=== PATIENT | male | born 1995 | race Hispanic/Latino ===

== ENCOUNTER 2019-03-31 21:57 | Inpatient (IN) | payer BC | END 2019-04-03 12:00 | disposition home or self-care (01) | LOC: EDH 21:57 → EDHIP 04-01 02:17 → 2AH 04-01 16:41 | DX: E10.10 Type 1 diabetes mellitus with ketoacidosis without coma (principal); E86.0 Dehydration; K21.9 Gastro-esophageal reflux disease without esophagitis; E11.43 Type 2 diabetes mellitus with diabetic autonomic (poly)neuropathy; E11.65 Type 2 diabetes mellitus with hyperglycemia; K31.84 Gastroparesis; E10.40 Type 1 diabetes mellitus with diabetic neuropathy, unspecified ==

== ENCOUNTER → 2019-09-16 | Outpatient (CLI) | payer OTHER ==
[~2019-09-16] MED LIST: INSU100C14 SQ; INSU100V12 SQ; LIDOCAINE/PRILOCAINE CREAM 5GM TUBE TP ONE
[2019-09-16 16:22] VITALS: BP 124/87
== END | disposition home or self-care (01) ==
LOC: WHH 09:00
PROVIDERS: ATTEND Podiatrist Foot & Ankle Surgery
DX: E10.621 Type 1 diabetes mellitus with foot ulcer (principal); L97.522 Non-pressure chronic ulcer of other part of left foot with fat layer exposed; E10.40 Type 1 diabetes mellitus with diabetic neuropathy, unspecified; I10 Essential (primary) hypertension; K52.9 Noninfective gastroenteritis and colitis, unspecified; Z79.4 Long term (current) use of insulin
CPT/HCPCS: 11042; 11045; A4450; A6207; J3490; L3260

== ENCOUNTER → 2019-10-07 | Outpatient (CLI) | payer OTHER ==
[~2019-10-07] MED LIST changes: +GABA-529 PO; +INSU100V39 SQ; -LIDOCAINE/PRILOCAINE CREAM 5GM TUBE TP ONE
[2019-10-07 13:31] VITALS: BP 123/80
== END | disposition home or self-care (01) ==
LOC: WHH 10:20
PROVIDERS: ATTEND Podiatrist Foot & Ankle Surgery
DX: E10.621 Type 1 diabetes mellitus with foot ulcer (principal); L97.522 Non-pressure chronic ulcer of other part of left foot with fat layer exposed; E10.40 Type 1 diabetes mellitus with diabetic neuropathy, unspecified; I10 Essential (primary) hypertension; Z79.4 Long term (current) use of insulin
CPT/HCPCS: 11042; A6209

== ENCOUNTER 2019-10-12 15:38 | Inpatient (IN) | payer OTHER ==
[~2019-10-12] VITALS: Ht 177.8 cm; Wt 73.8 kg
[~2019-10-12 15:38] MED LIST changes: -GABA-529 PO; -INSU100V39 SQ
[2019-10-12 16:11] LABS: EOSINOPHILS % (AUTO) 5.4 % (0.0-8.0); HEMATOCRIT 40.3 % (42-54); LYMPHOCYTES % (AUTO) 21.8 % (21.0-51.0); MEAN CORPUSCULAR HGB CONC 32.5 g/dL (32.0-36.0); MEAN CORPUSCULAR VOLUME 92.4 fL (79-99); MONOCYTES % (AUTO) 8.1 % (3.0-13.0); NEUTROPHILS % (AUTO) 63.3 % (40.0-77.0); PLATELET COUNT (AUTO) 353 K/uL (130-400); RED BLOOD CELL COUNT(AUTO) 4.36 MIL/uL (4.50-6.20); RED CELL DISTRIBUTION WIDTH 12.6 % (11.0-15.5); WHITE BLOOD COUNT (AUTO) 11.5 K/uL (4.8-10.8)
[2019-10-12 16:20] LABS: CREATININE 0.6 mg/dL (0.5-1.5)
[2019-10-12 16:25] LABS: ALBUMIN 3.7 g/dL (3.5-5.0); BILIRUBIN,TOTAL 0.3 mg/dL (0.2-1.0); TOTAL PROTEIN, SERUM 8.2 g/dL (6.0-8.3)
[2019-10-12] MEDS ORDERED: POTASSIUM CHLORIDE 10% ELIXIR 20 MEQ/15 ML UDCUP PO PRN (16:30)
[2019-10-12] MEDS ORDERED: VANCOMYCIN PROTOCOL PER PHARMACY IV SCH (16:30)
[2019-10-12] MEDS ORDERED: MORPHINE-NS 50 MG/50 ML 50 ML IV PRN (16:30)
[2019-10-12] MEDS ORDERED: POTASSIUM CHLORIDE 20MEQ/100ML 100 ML IV PRN (16:30)
[2019-10-12] MEDS ORDERED: GUAIFENESIN SUGAR-FREE 100 MG/5 ML UDCUP PO PRN (16:30)
[2019-10-12] MEDS ORDERED: LACTULOSE 20 GM/30 ML UDCUP PO PRN (16:30)
[2019-10-12] MEDS ORDERED: MAG HYDROX/AL HYDROX/SIMETH ES 30 ML SUSP UDCUP PO PRN (16:30)
[2019-10-12] MEDS ORDERED: SODIUM CHLORIDE 0.9% 10 ML VIAL IVP PRN (16:30)
[2019-10-12] MEDS ORDERED: VANCOMYCIN 1.75 GM in SODIUM CHLORIDE 0.9% 250 ML IV ONE (16:30)
[2019-10-12] MEDS ORDERED: NALOXONE HCL 0.4 MG/1 ML ML IVP PRN (16:30)
[2019-10-12] MEDS ORDERED: NITROGLYCERIN 0.4 MG SL TAB SL PRN (16:30)
[2019-10-12] MEDS ORDERED: SODIUM CHLORIDE 0.9% 1000ML 1,000 ML IV SCH (16:30)
[2019-10-12] MEDS ORDERED: LIDOCAINE HCL-MPF 1% 2ML VIAL IJ PRN (16:30)
[2019-10-12] MEDS ORDERED: POTASSIUM CHLORIDE 20 MEQ ERTAB PO PRN (16:30)
[2019-10-12] MEDS ORDERED: GLUCAGON 1MG KIT 1 MG ML IM PRN (16:30)
[2019-10-12] MEDS ORDERED: SODIUM CHLORIDE 0.9% 1000ML 1,000 ML IV ONE (16:39)
[2019-10-12] MEDS ORDERED: ZOSYN 3.375GM+NS 50ML 50 ML IV ONE (16:39)
[2019-10-12] MEDS ORDERED: INSU100V12 SQ (17:58)
[2019-10-12] MEDS ORDERED: INSU100V39 SQ (17:58)
[2019-10-12] MEDS ORDERED: GABA-529 PO (17:59)
[2019-10-12] MEDS: ZOSYN 3.375GM+NS 50ML 50 ML IV SCH (18:30)
[2019-10-12 20:20] VITALS: BP 116/83
[2019-10-12] MEDS: INSULIN R PO SS1 SQ SCH (21:00)
[2019-10-12 23:56] VITALS: BP 104/68
[2019-10-13] MEDS: VANCOMYCIN 1.25 GM in SODIUM CHLORIDE 0.9% 250 ML IV SCH ×2 (00:31→09:15)
[2019-10-13] MEDS: ZOSYN 3.375GM+NS 50ML 50 ML IV SCH ×3 (02:30→17:05)
[2019-10-13 03:55] VITALS: BP 97/67
[2019-10-13 04:50] LABS: HEMATOCRIT 36.9 % (42-54); MEAN CORPUSCULAR HEMOGLOBIN 31.2 pg (27.0-33.0); MEAN CORPUSCULAR HGB CONC 32.5 g/dL (32.0-36.0); MEAN CORPUSCULAR VOLUME 95.8 fL (79-99); PLATELET COUNT (AUTO) 295 K/uL (130-400); RED BLOOD CELL COUNT(AUTO) 3.85 MIL/uL (4.50-6.20); RED CELL DISTRIBUTION WIDTH 13.1 % (11.0-15.5); WHITE BLOOD COUNT (AUTO) 7.9 K/uL (4.8-10.8)
[2019-10-13] MEDS: INSULIN R PO SS1 SQ SCH ×4 (06:05→21:00)
[2019-10-13] MEDS ORDERED: ACETAMINOPHEN 325 MG TAB PO PRN ×2 (06:45)
[2019-10-13] MEDS ORDERED: DiphenhydrAMINE HCL 50 MG/ML VIAL IV PRN (06:45)
[2019-10-13] MEDS ORDERED: DIPHENHYDRAMINE HCL 25 MG CAPSULE PO PRN (06:45)
[2019-10-13] MEDS ORDERED: DOCUSATE SODIUM 100 MG CAP PO PRN (08:30)
[2019-10-13 09:14] VITALS: BP 140/95
[2019-10-13] MEDS: CADEXOMER IODINE 40 GM GEL TP SCH (09:15)
[2019-10-13] MEDS: FAMOTIDINE 20MG TAB 20 MG TAB PO SCH ×2 (09:16→20:40)
[2019-10-13] MEDS: GABAPENTIN 100 MG CAPSULE PO SCH ×2 (09:16→20:40)
[2019-10-13] MEDS: INSULIN GLARGINE 100 UNITS/ML 10 ML VIAL SQ SCH ×2 (09:21→21:00)
[2019-10-13] MEDS ORDERED: PROMETHAZINE HCL 25 MG TABLET PO PRN (10:15)
[2019-10-13] MEDS ORDERED: GADODIAMIDE 10 MMOL/20 ML VIAL IV ONE (10:17)
[2019-10-13 11:00] VITALS: BP 130/95
[2019-10-13] MEDS: ONDANSETRON HCL 4 MG/2 ML VIAL IVP PRN (11:57)
--- NOTE | 2019-10-13 14:24 | NUR ---
patient is uncooperative with Initial Physical Therapy Evaluation,with his own words-I DON'T WANT ANY THERAPY.CAN YOU NOT HEAR ME.From previous hospitalization, patient was able to utilize the crutches without any difficulty. Notified VEDA Cain regarding 's attitude towards Physical therapist. Addendum: 10/13/19 at 1431 by LIGIA ARCEO, PT PT Amended: Links added.
--- NOTE | 2019-10-13 16:15 | NUR ---
INITIAL MET W PATIENT , ALONE, FOR DC PLANNING. KNOWN TO THIS EFFICIENCY EXPERT FROM A PREVIOUS ADMISSION. 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 WAS ALSO GOING TO SCHOOL, HAS SINCE DROPPPED OUT . PT SEE DR. GONZALEZ, HAS NO HOME HEALTH OR PORVIDER SERVICES, AND DRIVES HIMSELF . PT HAS HX DM I AND HAS ANXIETY DISORDER. JUST PRIOR TO TIME OF CM ASSESMSENT HAD DECIDED WAS TOO ANXIOUS TO DO PHYSICAL THERPAY. CM TO FOLLOW. ANTICIPATE PO ABX AND FAMILY TO DO DRESSING- CURRENT INSURANCE DOES NOT PAY FOR PLACEMENT OR HH Addendum: 10/14/19 at 1628 by SOCRATES BARTON RN Amended: Links added.
[2019-10-13 17:01] VITALS: BP 153/104
[2019-10-13] MEDS: VANCOMYCIN 1GM+NS 250ML 250 ML IV SCH (17:05)
[2019-10-13 19:20] VITALS: BP 151/109
[2019-10-13 23:55] VITALS: BP 126/76
[2019-10-14] MEDS: ZOSYN 3.375GM+NS 50ML 50 ML IV SCH ×3 (02:28→22:17)
[2019-10-14] MEDS: VANCOMYCIN 1GM+NS 250ML 250 ML IV SCH ×3 (02:28→18:04)
[2019-10-14 05:40] LABS: MEAN CORPUSCULAR HEMOGLOBIN 30.4 pg (27.0-33.0); MEAN CORPUSCULAR HGB CONC 32.2 g/dL (32.0-36.0); MEAN CORPUSCULAR VOLUME 94.5 fL (79-99); PLATELET COUNT (AUTO) 269 K/uL (130-400); RED BLOOD CELL COUNT(AUTO) 3.81 MIL/uL (4.50-6.20); RED CELL DISTRIBUTION WIDTH 12.8 % (11.0-15.5); WHITE BLOOD COUNT (AUTO) 7.6 K/uL (4.8-10.8)
[2019-10-14 05:49] LABS: CREATININE 0.7 mg/dL (0.5-1.5); POTASSIUM 4.3 mmol/L (3.5-5.1)
[2019-10-14] MEDS: INSULIN R PO SS1 SQ SCH ×4 (05:55→22:28)
[2019-10-14 08:00] VITALS: BP 125/83
[2019-10-14] MEDS: FAMOTIDINE 20MG TAB 20 MG TAB PO SCH ×2 (08:45→22:17)
[2019-10-14] MEDS: GABAPENTIN 100 MG CAPSULE PO SCH ×2 (08:45→22:17)
[2019-10-14] MEDS: CADEXOMER IODINE 40 GM GEL TP SCH (08:55)
[2019-10-14] MEDS: INSULIN GLARGINE 100 UNITS/ML 10 ML VIAL SQ SCH ×2 (08:56→22:22)
[2019-10-14] MEDS: ONDANSETRON HCL 4 MG/2 ML VIAL IVP PRN (11:34)
[2019-10-14 12:00] VITALS: BP 127/76
[2019-10-14 16:00] VITALS: BP 149/91
[2019-10-14 19:50] VITALS: BP 171/110
[2019-10-14] MEDS: CLONIDINE HCL 0.1 MG TABLET PO PRN (22:16)
[2019-10-14 23:21] VITALS: BP 120/75
[2019-10-15] MEDS ORDERED: SODIUM CHLORIDE 0.9% 500ML 500 ML IV ONE (01:34)
[2019-10-15] MEDS: VANCOMYCIN 1GM+NS 250ML 250 ML IV SCH ×3 (02:16→18:26)
[2019-10-15 03:44] VITALS: BP 118/79
[2019-10-15] MEDS: ZOSYN 3.375GM+NS 50ML 50 ML IV SCH ×3 (05:08→20:33)
[2019-10-15] MEDS: INSULIN R PO SS1 SQ SCH ×4 (07:13→20:43)
[2019-10-15 08:13] VITALS: BP 119/78
[2019-10-15] MEDS: FAMOTIDINE 20MG TAB 20 MG TAB PO SCH ×2 (09:38→20:33)
[2019-10-15] MEDS: GABAPENTIN 100 MG CAPSULE PO SCH ×2 (09:38→20:34)
[2019-10-15] MEDS: CADEXOMER IODINE 40 GM GEL TP SCH (09:38)
[2019-10-15] MEDS: INSULIN GLARGINE 100 UNITS/ML 10 ML VIAL SQ SCH ×2 (10:16→20:44)
[2019-10-15] MEDS: FLUCONAZOLE 400 MG/NS 200 ML 200 ML IV SCH (11:50)
[2019-10-15 12:08] VITALS: BP 137/81
[2019-10-15 16:00] VITALS: BP 141/91
[2019-10-15 20:16] VITALS: BP 152/108
[2019-10-15] MEDS: CLONIDINE HCL 0.1 MG TABLET PO PRN (20:55)
[2019-10-16] VITALS (7 sets, daily range): BP systolic 99–175; BP diastolic 60–111
[2019-10-16] MEDS: VANCOMYCIN 1GM+NS 250ML 250 ML IV SCH ×3 (02:10→16:44)
[2019-10-16] MEDS: ZOSYN 3.375GM+NS 50ML 50 ML IV SCH ×3 (04:19→21:28)
[2019-10-16] MEDS: INSULIN R PO SS1 SQ SCH ×5 (07:30→21:00)
--- NOTE | 2019-10-16 08:00 | NUR ---
MD rounds patient AAOx3, denies any pain. 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 wound care explained and MD assess site. recs are to stay till saturday for continued IV therapy.
[2019-10-16] MEDS: FAMOTIDINE 20MG TAB 20 MG TAB PO SCH ×2 (08:33→21:28)
[2019-10-16] MEDS: FLUCONAZOLE 400 MG/NS 200 ML 200 ML IV SCH (08:33)
[2019-10-16] MEDS: GABAPENTIN 100 MG CAPSULE PO SCH ×2 (08:34→21:29)
[2019-10-16] MEDS: INSULIN GLARGINE 100 UNITS/ML 10 ML VIAL SQ SCH ×2 (08:36→21:34)
[2019-10-16] MEDS: CADEXOMER IODINE 40 GM GEL TP SCH (08:36)
--- NOTE | 2019-10-16 09:07 | NUR ---
EGG CRATER pump discontinued. witnessed with charge nurse Selina Mckoy RN. waste documented 21.5 mls.
[2019-10-16] MEDS ORDERED: LIDOCAINE HCL 2% 20ML ONE (12:06)
[2019-10-16] MEDS ORDERED: IODIXANOL 320 MG/ML 100 ML VIAL ONE (12:06)
[2019-10-16] MEDS ORDERED: SODIUM BICARB 50MEQ 50ML VIAL ONE (12:06)
--- NOTE | 2019-10-16 15:09 | NUR ---
cm note spoke to Clara with [facility] [phone] and states they have received referral for w/c, but requesting actual insurance card. obtained from pt and this was faxed to them, confirmed with clara at [facility] and states has received and will verify benefits and provide feedback once verified.
--- NOTE | 2019-10-16 15:23 | NUR ---
cm note spoke to raymond wisdom at [facility], and states pt is a pre existing pt, and request that pt call the wound center on saturday. [phone]. and they will give him an appointment. as per raymond Baca states his insurance does not have coverage for wound center, but they will continue to see pt and provide him with an appointment when he calls in on saturday. pt updated on this and in agreement. updated primary nurse on above.
[2019-10-16] MEDS: HYDROCODONE/ACETAMINOPHEN 10/325 MG TAB PO PRN (17:26)
[2019-10-17] MEDS: VANCOMYCIN 1GM+NS 250ML 250 ML IV SCH ×3 (01:55→18:06)
[2019-10-17 03:32] VITALS: BP 131/84
[2019-10-17] MEDS: ZOSYN 3.375GM+NS 50ML 50 ML IV SCH ×3 (04:04→20:17)
[2019-10-17] MEDS: INSULIN R PO SS1 SQ SCH ×2 (06:54→11:13)
[2019-10-17 08:08] VITALS: BP 148/104
[2019-10-17] MEDS: GABAPENTIN 100 MG CAPSULE PO SCH ×2 (08:43→20:16)
[2019-10-17] MEDS: FAMOTIDINE 20MG TAB 20 MG TAB PO SCH ×2 (08:43→20:16)
[2019-10-17] MEDS: FLUCONAZOLE 400 MG/NS 200 ML 200 ML IV SCH (08:43)
[2019-10-17] MEDS: INSULIN GLARGINE 100 UNITS/ML 10 ML VIAL SQ SCH (08:44)
[2019-10-17] MEDS: CADEXOMER IODINE 40 GM GEL TP SCH (09:00)
[2019-10-17] MEDS: HYDROCODONE/ACETAMINOPHEN 10/325 MG TAB PO PRN ×2 (09:48→20:16)
[2019-10-17 11:08] VITALS: BP 145/86
--- NOTE | 2019-10-17 14:00 | NUR ---
BS low blood sugarof 40.. D50 amp x1 given. patient is awake alert and oriented. labs ordered
--- NOTE | 2019-10-17 15:00 | NUR ---
recheck blood check 132
[2019-10-17] MEDS: DEXTROSE 50%-WATER 50 ML DISP.SYRIN IV PRN ×2 (15:08→15:56)
[2019-10-17 16:18] VITALS: BP 122/74
[2019-10-17 19:13] VITALS: BP 127/98
[2019-10-17 23:20] VITALS: BP 142/91
[2019-10-18] MEDS: VANCOMYCIN 1GM+NS 250ML 250 ML IV SCH ×3 (01:49→16:46)
[2019-10-18] MEDS: ZOSYN 3.375GM+NS 50ML 50 ML IV SCH ×3 (03:50→19:35)
[2019-10-18 03:51] VITALS: BP 145/92
[2019-10-18 06:22] LABS: HEMATOCRIT 36.9 % (42-54); MEAN CORPUSCULAR HEMOGLOBIN 30.2 pg (27.0-33.0); MEAN CORPUSCULAR HGB CONC 32.2 g/dL (32.0-36.0); MEAN CORPUSCULAR VOLUME 93.7 fL (79-99); PLATELET COUNT (AUTO) 261 K/uL (130-400); RED BLOOD CELL COUNT(AUTO) 3.94 MIL/uL (4.50-6.20); RED CELL DISTRIBUTION WIDTH 12.7 % (11.0-15.5); WHITE BLOOD COUNT (AUTO) 6.7 K/uL (4.8-10.8)
[2019-10-18 06:29] LABS: BILIRUBIN,TOTAL 0.3 mg/dL (0.2-1.0); CREATININE 1.1 mg/dL (0.5-1.5); POTASSIUM 4.6 mmol/L (3.5-5.1); TOTAL PROTEIN, SERUM 6.9 g/dL (6.0-8.3)
[2019-10-18 08:40] LABS: BASOPHILS % (MANUAL) 2 % (0-2); EOSINOPHILS % (MANUAL) 10 % (1-6); LYMPHOCYTES % (MANUAL) 31 % (22-44); MONOCYTES % (MANUAL) 9 % (2-9); PLATELET MORPHOLOGY COMMENT ADEQUATE; REACTIVE LYMPHOCYTES 3 % (0-0); SEGMENTED NEUTROPHILS % 45 % (40-70)
[2019-10-18] MEDS: FAMOTIDINE 20MG TAB 20 MG TAB PO SCH ×2 (08:49→19:34)
[2019-10-18] MEDS: HYDROCODONE/ACETAMINOPHEN 10/325 MG TAB PO PRN ×3 (08:50→22:45)
[2019-10-18] MEDS: GABAPENTIN 100 MG CAPSULE PO SCH ×2 (08:50→19:34)
[2019-10-18] MEDS: FLUCONAZOLE 400 MG/NS 200 ML 200 ML IV SCH (08:50)
[2019-10-18] MEDS: CADEXOMER IODINE 40 GM GEL TP SCH (09:00)
[2019-10-18 11:19] VITALS: BP 144/98
[2019-10-18 16:17] VITALS: BP 169/115
[2019-10-18] MEDS: CLONIDINE HCL 0.1 MG TABLET PO PRN (16:47)
[2019-10-18 19:43] VITALS: BP 130/85
[2019-10-18 22:54] VITALS: BP 126/88
[2019-10-19] MEDS: VANCOMYCIN 1GM+NS 250ML 250 ML IV SCH (02:42)
[2019-10-19 03:15] VITALS: BP 124/77
[2019-10-19] MEDS: ZOSYN 3.375GM+NS 50ML 50 ML IV SCH (04:03)
[2019-10-19] MEDS: HYDROCODONE/ACETAMINOPHEN 10/325 MG TAB PO PRN ×2 (05:32→09:49)
[2019-10-19 07:57] VITALS: BP 149/107
[2019-10-19] MEDS: FLUCONAZOLE 400 MG/NS 200 ML 200 ML IV SCH (08:22)
[2019-10-19] MEDS: GABAPENTIN 100 MG CAPSULE PO SCH (08:22)
[2019-10-19] MEDS: FAMOTIDINE 20MG TAB 20 MG TAB PO SCH (08:22)
[2019-10-19] MEDS: ONDANSETRON HCL 4 MG/2 ML VIAL IVP PRN (09:48)
--- NOTE | 2019-10-19 11:00 | NUR ---
FINAL DISCHARGE ARRANGEMENTS ADVISED FATHER RUTH PERRY OF FEE FOR SATURDAY APPT WITH [facility], AND THAT WOUND HEALING/ DRESSING CHANGES ARE NOT COVERED BY INSURANCE, AGREED TO HAVE BAILEY LOOK AT ONCE WEEKLY AND DO DSG CHAGNES BY PT AND FAMILY REST OF TIME. RELAYED ALSO TO PATIENT, WHO AGREED TO ALL; INSTRUCTIONS AND TEACH BACK PER PRIMARY RN; CALL TO DME COMPANY- AWAITING SIGNATURE FROM DR. GONZALEZ FOR W/CHAIR- CALL TO 'S [place] OFFICE, FORM TO BE FAXED TO THEM, STAFF WILL ADVISED DR. GONZALEZ & FAX BACK- WHEEL CHAIR TO BE DELIVERED TO HOME IF PT DC PRIOR TO AUTH BY INSURANCE. ALSO SPOKE TO TEGAN AT [employer]EF[employer] RE WHEEL CHAIR AND WOUND CARE Addendum: 10/20/19 at 0735 by SOCRATES BARTON RN Amended: Links added.
[2019-10-19 11:40] VITALS: BP 119/67
[2019-10-19 11:41] VITALS: BP 140/90
--- NOTE | 2019-10-19 12:30 | NUR ---
DISCHARGE PATIENT GIVEN DISCHARGE INSTRUCTIONS VIA TEACH BACK. 20G PIV TO LFA DISCONTINUED. PATIENT REINSTRUCTED REGARDING DAILY WOUND CARE TO LEFT HEAL USING IODOSORB GEL. PER PATIENT, WILL PERFORM OWN WOUND CARE. PATIENT TO FOLLOW UP WITH DR. GONZALEZ AND DR. AVALOS. RX GIVEN FOR AUGMENTIN AND DIFLUCAN. PATIENT NWB TO LEFT FOOT AND HAS CRUTCHES AT BEDSIDE. WOUND CARE PERFORMED AND PICTURES TAKEN. PATIENT STABLE AT THIS TIME. PATIENT WHEELED TO LOBBY BY KLEBER TATE.
== END 2019-10-19 12:10 | disposition home or self-care (01) | DRG 638 ==
LOC: EDH 15:38 → EDHIP 15:39 → 4CH 20:19
PROVIDERS: ADMIT Family Medicine; ATTEND Family Medicine
DX: E10.621 Type 1 diabetes mellitus with foot ulcer (principal); B37.89 Other sites of candidiasis; L97.429 Non-pressure chronic ulcer of left heel and midfoot with unspecified severity; Z79.4 Long term (current) use of insulin; Z91.19 Patient's noncompliance with other medical treatment and regimen; E10.42 Type 1 diabetes mellitus with diabetic polyneuropathy; B95.2 Enterococcus as the cause of diseases classified elsewhere
CPT/HCPCS: 36415; 73630; 73723; 80048; 80053; 80202; 82947; 82948; 85025; 85027; 87040; 87070; 87076; 87077; 87186; 97039; A9579; G0378; J1450; J1644; J1815; J2270; J2405; J2543; J3370; J3490; J7030; J7040; J7070; Q9967

== ENCOUNTER 2019-10-27 17:35 | Inpatient (IN) | payer OTHER ==
[~2019-10-27] VITALS: Ht 177.8 cm; Wt 71.6 kg
[~2019-10-27 17:35] MED LIST changes: +GABA-529 PO; -INSU100C14 SQ; +INSU100V39 SQ
[2019-10-27] MEDS ORDERED: VANCOMYCIN 1GM+NS 250ML 250 ML IV ONE (18:19)
[2019-10-27] MEDS ORDERED: SODIUM CHLORIDE 0.9% 50 ML IV ONE (18:19)
[2019-10-27] MEDS ORDERED: CEFTRIAXONE SODIUM 2 GM VIAL ONE (18:19)
[2019-10-27 18:34] LABS: BASOPHILS % (AUTO) 0.7 % (0.0-5.0); EOSINOPHILS % (AUTO) 3.6 % (0.0-8.0); HEMATOCRIT 41.1 % (42-54); LYMPHOCYTES % (AUTO) 38.5 % (21.0-51.0); MEAN CORPUSCULAR HGB CONC 32.8 g/dL (32.0-36.0); MEAN CORPUSCULAR VOLUME 91.3 fL (79-99); MONOCYTES % (AUTO) 10.6 % (3.0-13.0); NEUTROPHILS % (AUTO) 46.2 % (40.0-77.0); PLATELET COUNT (AUTO) 284 K/uL (130-400); RED CELL DISTRIBUTION WIDTH 12.2 % (11.0-15.5)
[2019-10-27 18:45] LABS: INR 0.93 (0.85-1.15); PARTIAL THROMBOPLASTIN TIME 23.6 SEC (26.3-35.5); PROTHROMBIN TIME 9.8 SEC (9.6-11.6)
[2019-10-27 18:49] LABS: CARBON DIOXIDE 29 mmol/L (21-32); CHLORIDE 100 mmol/L (101-111); CREATININE 0.9 mg/dL (0.5-1.5); GLOMERULAR FILTR. RATE CALC 109 mL/min (>60); GLUCOSE,RANDOM 268 mg/dL (70-105); POTASSIUM 4.3 mmol/L (3.5-5.1); SODIUM SERUM 138 mmol/L (136-145); UREA NITROGEN, BLOOD 33 mg/dL (7-18)
[2019-10-27] MEDS ORDERED: MORPHINE SULFATE 2 MG/ML 1ML SYG ONE (18:51)
[2019-10-27] MEDS ORDERED: ONDANSETRON HCL 4 MG/2 ML VIAL ONE (18:51)
[2019-10-27 19:01] LABS: ALANINE AMINOTRANSFERASE 42 U/L (12-78); ALBUMIN 3.7 g/dL (3.5-5.0); ASPARTATE AMINOTRANSFERASE 20 U/L (10-37); BILIRUBIN,TOTAL 0.2 mg/dL (0.2-1.0); CREATINE KINASE, TOTAL 67 U/L (21-232); MYOGLOBIN 21 ng/mL (10-92); TOTAL PROTEIN, SERUM 8.2 g/dL (6.0-8.3); TROPONIN I < 0.04 ng/mL (0.00-0.06)
[2019-10-27] MEDS ORDERED: VANCOMYCIN PROTOCOL PER PHARMACY IV SCH (21:00)
[2019-10-27] MEDS ORDERED: MORPHINE SULFATE 4 MG/1ML SYG IVP PRN (21:00)
[2019-10-27] MEDS ORDERED: CLONIDINE HCL 0.1 MG TABLET PO PRN (21:00)
[2019-10-27] MEDS ORDERED: LACTULOSE 20 GM/30 ML UDCUP PO PRN (21:00)
[2019-10-27] MEDS ORDERED: GUAIFENESIN-DM 200/20 MG 10 ML PO PRN (21:00)
[2019-10-27] MEDS ORDERED: ZOLPIDEM TARTRATE 5 MG TAB PO PRN (21:00)
[2019-10-27] MEDS ORDERED: DiphenhydrAMINE HCL 50 MG/ML VIAL IVP PRN (21:00)
[2019-10-27] MEDS ORDERED: LIDOCAINE HCL-MPF 1% 2ML VIAL IJ PRN (21:00)
[2019-10-27] MEDS ORDERED: MAG HYDROX/AL HYDROX/SIMETH ES 30 ML SUSP UDCUP PO PRN (21:00)
[2019-10-27] MEDS ORDERED: ONDANSETRON HCL 4 MG/2 ML VIAL IVP PRN (21:00)
[2019-10-27] MEDS ORDERED: GUAIFENESIN SUGAR-FREE 100 MG/5 ML UDCUP PO PRN (21:00)
[2019-10-27] MEDS ORDERED: NITROGLYCERIN 0.4 MG SL TAB SL PRN (21:00)
[2019-10-27] MEDS ORDERED: SODIUM CHLORIDE 0.9% 10 ML VIAL IVP SCH (21:00)
[2019-10-27] MEDS ORDERED: POTASSIUM CHLORIDE 10% ELIXIR 20 MEQ/15 ML UDCUP PO PRN (21:00)
[2019-10-27] MEDS ORDERED: MEROPENEM 1 GM VIAL IVP SCH (21:00)
[2019-10-27] MEDS ORDERED: POTASSIUM CHLORIDE 20MEQ/100ML 100 ML IV PRN (21:00)
[2019-10-27] MEDS ORDERED: ACETAMINOPHEN 325 MG TAB PO PRN ×2 (21:00)
[2019-10-27] MEDS ORDERED: DIPHENHYDRAMINE HCL 25 MG CAPSULE PO PRN (21:00)
[2019-10-27] MEDS ORDERED: POTASSIUM CHLORIDE 20 MEQ ERTAB PO PRN (21:00)
[2019-10-27] MEDS: SODIUM CHLORIDE 0.9% 1000ML 1,000 ML IV SCH (21:00)
[2019-10-27] MEDS ORDERED: PHARMACY COMMUNICATION MISC SCH ×2 (21:15→22:30)
[2019-10-27] MEDS ORDERED: SODIUM CHLORIDE 0.9% 1000ML 1,000 ML IV ONE (21:20)
[2019-10-27] MEDS ORDERED: INSULIN HUMULIN R 100 UNIT/ML 3ML ONE (21:24)
--- NOTE | 2019-10-27 21:40 | NUR ---
RX SEJAL FROM PHARMACY CALLED TILE SORTER AND INFORMED OF PT'S NEED FOR ABX CLARIFICATION. TILE SORTER INFORMED PHARMACIST THAT PT IS STILL IN ER AND WILL LOOK INTO MEDS WHEN PT IS TRANSFERRED TO FLOOR.
[2019-10-27] MEDS: VANCOMYCIN 1.25 GM in SODIUM CHLORIDE 0.9% 250 ML IV SCH (22:00)
[2019-10-27 22:30] VITALS: BP 131/80
[2019-10-27] MEDS ORDERED: DEXTROSE 50%-WATER 50 ML DISP.SYRIN IV PRN (22:30)
[2019-10-27] MEDS ORDERED: GLUCAGON 1MG KIT 1 MG ML IM PRN (22:30)
--- NOTE | 2019-10-27 22:45 | NUR ---
ADMIT PT ADMITTED TO ROOM 413, AAOX3. CLAIMS OF PAINS ON LEFT FOOT. IVF OF NS FROM ER CONTINUED AT 125CC/HR. ADMISSION CARE DONE. ADMISSION DATA BASE COMPLETED. MEDICATED WITH MORPHINE FOR PAIN. PICTURE OF WOUND AND WOUND DRESSING DONE. PLEASE REFER TO CHART. KEPT COMFORTABLE IN BED. CALL LIGHT WITHIN REACH. FALL PRECAUTIONS IMPLEMENTED. ORIENTED TO ROOM AND UNIT. IN FOR MORE CARE AND MANAGEMENT. Addendum: 10/28/19 at 0059 by DONNA CONDON RN RN Amended: Links added.
[2019-10-27] MEDS ORDERED: MORPHINE-NS 50 MG/50 ML 50 ML IV PRN (23:00)
--- NOTE | 2019-10-27 23:30 | NUR ---
UNAVAILABLE UNABLE TO FIND VANCO DOSE FROM PHARMACY. MED NOT LOADED ON THE OMNICELL. PHARMACY ALREADY CLOSED FOR THE NIGHT. CALLED [facility] IN ER TO SEE IF RX DELIVERED MED THERE BUT NONE FOUND.
[2019-10-27] MEDS ORDERED: NALOXONE HCL 0.4 MG/1 ML ML IVP PRN (23:45)
--- NOTE | 2019-10-28 | NUR ---
MOLD BUILDER CHECKED MOLD BUILDER SETTING WITH VEDA CRUZ. STARTED MOLD BUILDER PER PROTOCOL. EDUCATION GIVEN TO PT FOR HOW TO USE PUMP. PT VERBALIZES UNDERSTANDING. WILL MONITOR PT.
[2019-10-28] MEDS: ZOSYN 3.375GM+NS 50ML 50 ML IV SCH ×3 (00:02→17:37)
--- NOTE | 2019-10-28 01:02 | NUR ---
RE-ASSESS PT RESTING WELL, FAIRLY ASLEEP WITH RESPIRATIONS EVEN AND UNLABORED. NO DISTRESS NOTED. CALL LIGHT WITHIN REACH. WILL MONITOR PT.
--- NOTE | 2019-10-28 01:55 | NUR ---
VANCO EMERGENCY ROOM PHYSICIAN FOUND DOSES OF VANCO LOADED IN THE REF BUT NOT PROFILED IN THE OMNICELL. INSERTED SECOND PIV FOR INFUSION, G20 TO LEFT HAND. PT TOLERATED INSERTION WELL. INV ABX HUNG. WILL INFORM RX WHEN IT OPENS OF CHANGE IN TIME OF WHEN ABX WAS HUNG.
[2019-10-28] MEDS: VANCOMYCIN 1.25 GM in SODIUM CHLORIDE 0.9% 250 ML IV SCH ×4 (01:56→17:41)
[2019-10-28 03:41] VITALS: BP 126/78
[2019-10-28] MEDS: SODIUM CHLORIDE 0.9% 1000ML 1,000 ML IV SCH ×3 (04:30→20:23)
--- NOTE | 2019-10-28 05:26 | NUR ---
ROUNDS PT RESTING WELL, NO CONCERNS VERBALIZED AT THIS TIME. NO DISTRESS NOTED. KEPT COMFORTABLE. FOR MORE CARE AND MANAGEMENT.
[2019-10-28] MEDS: INSULIN HUMULIN R 100 UNIT/ML 3ML SQ SCH ×4 (05:53→20:23)
[2019-10-28 06:10] LABS: HEMATOCRIT 37.1 % (42-54); MEAN CORPUSCULAR HEMOGLOBIN 29.5 pg (27.0-33.0); MEAN CORPUSCULAR HGB CONC 32.3 g/dL (32.0-36.0); MEAN CORPUSCULAR VOLUME 91.2 fL (79-99); PLATELET COUNT (AUTO) 229 K/uL (130-400); RED BLOOD CELL COUNT(AUTO) 4.07 MIL/uL (4.50-6.20); RED CELL DISTRIBUTION WIDTH 12.1 % (11.0-15.5); WHITE BLOOD COUNT (AUTO) 6.8 K/uL (4.8-10.8)
[2019-10-28 06:34] LABS: ALBUMIN 3.1 g/dL (3.5-5.0); BILIRUBIN,TOTAL 0.3 mg/dL (0.2-1.0); CREATININE 0.8 mg/dL (0.5-1.5); POTASSIUM 4.2 mmol/L (3.5-5.1)
[2019-10-28 08:00] VITALS: BP 162/103
[2019-10-28] MEDS ORDERED: PHARMACY COMMUNICATION MISC SCH (08:45)
[2019-10-28] MEDS ORDERED: DOCUSATE SODIUM 100 MG CAP PO PRN (08:45)
[2019-10-28] MEDS: INSULIN GLARGINE 100 UNITS/ML 10 ML VIAL SQ SCH (10:23)
[2019-10-28 10:37] LABS: APPEARANCE,URINE Clear (CLEAR); BILIRUBIN,URINE Negative (NEGATIVE); COLOR,URINE Yellow (YELLOW); GLUCOSE, URINE (UA) >=1000 mg/dL (NEGATIVE); KETONES,URINE Negative (NEGATIVE); LEUKOCYTE ESTERASE ,URINE Negative (NEGATIVE); NITRATE,URINE Negative (NEGATIVE); OCCULT BLOOD,URINE Negative (NEGATIVE); PROTEIN,URINE Negative (NEGATIVE); UROBILINOGEN,URINE 0.2 mg/dL (0.2-1.0)
[2019-10-28 11:10] LABS: BACTERIA,URINE Rare /HPF (None Seen); RBC,URINE None Seen /HPF (0-1); SQUAMOUS EPITHELIAL CELL,UR Rare /HPF (0-2); WBC,URINE None Seen /HPF (0-1)
[2019-10-28 12:00] VITALS: BP 122/85
--- NOTE | 2019-10-28 14:34 | NUR ---
INITIAL Patient lives with parents. Emergency contact is his father, Marcelino Mccain, [phone]. No home services. DME: glucometer (uses insulin). Patient is independent and drives. He is no longer employed at this time. PCP is Dr. Konrad Medrano. Pharmacy is [facility] in [place]. DCP is home. Addendum: 10/28/19 at 1436 by LOBO ROCK SS Amended: Links added.
--- NOTE | 2019-10-28 15:45 | NUR ---
PT REQUESTING HIS IV AUTO MACHINIST BE STOPPED AND HE WANTS IVP MORPHINE INSTEAD; HE STATES HE DOES NOT GET ADEQUATE PAIN RELEIF WITH THE AUTO MACHINIST AND WANTS THE LARGER DOSE ADMINISTERED LESS FREQUENTLY; I CALLED DR BARAKAT AND GOT AN OK TO D/C AUTO MACHINIST AND START MORPHINE 4MG IVP Q4HRS PRN PAIN
[2019-10-28 16:00] VITALS: BP 129/81
[2019-10-28] MEDS: MORPHINE SULFATE 4 MG/1ML SYG IV PRN ×2 (17:50→21:59)
[2019-10-28 20:28] VITALS: BP 138/92
--- NOTE | 2019-10-28 20:45 | NUR ---
MD ROUNDING DR. DOMINGO IN PT ROOM, ASSESSED CHART AND PT. MD DRESSED WOUND TO LEFT FOOT WITH MEDIHONEY AND VASELINE GAUZE, WRAPPED WITH KERLIX. UPDATED PT ON PLAN OF CARE AND ANSWERED PT QUESTIONS.
[2019-10-29 00:28] VITALS: BP 132/87
[2019-10-29] MEDS: ZOSYN 3.375GM+NS 50ML 50 ML IV SCH ×4 (00:41→23:26)
[2019-10-29] MEDS: VANCOMYCIN 1.25 GM in SODIUM CHLORIDE 0.9% 250 ML IV SCH ×3 (02:31→17:27)
[2019-10-29 04:28] VITALS: BP 147/100
[2019-10-29] MEDS: SODIUM CHLORIDE 0.9% 1000ML 1,000 ML IV SCH ×2 (04:52→20:47)
[2019-10-29] MEDS: MORPHINE SULFATE 4 MG/1ML SYG IV PRN ×4 (05:15→20:47)
[2019-10-29 05:42] LABS: HEMATOCRIT 40.5 % (42-54); MEAN CORPUSCULAR HEMOGLOBIN 29.4 pg (27.0-33.0); MEAN CORPUSCULAR HGB CONC 32.3 g/dL (32.0-36.0); PLATELET COUNT (AUTO) 262 K/uL (130-400); RED BLOOD CELL COUNT(AUTO) 4.45 MIL/uL (4.50-6.20); RED CELL DISTRIBUTION WIDTH 12.3 % (11.0-15.5)
[2019-10-29 05:53] LABS: HEMOGLOBIN A1C 9.1 % (4.0-6.0)
[2019-10-29 05:59] LABS: POTASSIUM 4.5 mmol/L (3.5-5.1)
[2019-10-29] MEDS: INSULIN HUMULIN R 100 UNIT/ML 3ML SQ SCH ×4 (07:10→20:46)
[2019-10-29 08:00] VITALS: BP 141/90
[2019-10-29] MEDS: INSULIN GLARGINE 100 UNITS/ML 10 ML VIAL SQ SCH ×2 (10:04→20:45)
--- NOTE | 2019-10-29 10:32 | NUR ---
i called dr mehta's office and spoke to nurse and informed of blood sugar 367; pending his call back
[2019-10-29] MEDS ORDERED: INSU100V12 SQ (10:51)
--- NOTE | 2019-10-29 10:55 | NUR ---
received call back from dr mehta and he stated to continue pt's insulin schedule as he takes at home
[2019-10-29 11:57] VITALS: BP 135/87
--- NOTE | 2019-10-29 16:30 | NUR ---
DC PLANING- SANTYL AND DRSG CHANGES? SUMMARY SPOKE W DR. GONZALEZ IN AM, STATES HE THINKS DR. HILLMAN WANTS IV ABX- WHAT ARE OPTOINS CALL FROM INSURANCE- ALONSO- [phone] EXT [phone] - SHE STAETS PT HAS HOME HEALTH BENENFITS BUT HH HAS TO BE WILLING TO TAKE THE CONTRACTED RATE - ADVISED HER THAT HAVE NOT YET SPOKEN TO DR. DOMINGO RE HIS RECS. ALONSO WAS UNABLE TO TELL ME THIS CM THE MEDICAITON BENEFITS. CALL TO DR. DOMINGO, MESSAGE LEFT CALL BACK FROM JOSE L WHO STATED WHAT PT REALLY NEEDS IS SANTYL- TO HEEL WITH GAUZE DAILY- WITH OR WITHOUT HOME HEALHT AND TO FOLLOW IN HIS OFFICE AND THAT PT REALLY NEEDS TO NOT BE WALKING ON THAT FOOT- AND THAT HE MAY CHANGE IDEAS FOR DC PLAN WHEN CULTURES ARE FULLY IN . RELAYED PLAN TO PATIENT- PATIENT STATED HAS [facility] APPT AT 4980 10/29 REQUESTING HAC AND/OR CM STAFF IN ROOM. WILL RELAY TO ROSA ISELA ALBA Addendum: 10/30/19 at 1438 by SOCRATES BARTON RN CM insurance number- [id number] ext [phone] alonso marvin
--- NOTE | 2019-10-29 17:31 | NUR ---
pt had a low blow sugar of 42 prior to his dinner tray arrived at same time as sugar check and he ate 100% of it on recheck sugar level 67; then pt's mother brought him fast food and he also ate all of that which i found out about after the fact; will recheck sugar again to see current level after all food eaten.
--- NOTE | 2019-10-29 18:44 | NUR ---
REGARDING US ARTERIAL: DR. KIAN RUBY PAGED AND HE RETURNED THE CALL WITHIN A FEW MINUTES. SUKH MCCOLLUM SPOKE TO . INFORMED HIM DR GONZALEZ HAD A QUESTION REGARDING THE ARTERIAL US FOR THE PATIENT, WANTED TO KNOW PERCENTAGE OF OCCLUSION TO EXTREMITIES. SAID THERE WAS CALCIFIED VESSELS BUT NO NARROWING OF THE LUMENS.
[2019-10-29 20:00] VITALS: BP 143/82
[2019-10-30] VITALS (8 sets, daily range): BP systolic 108–157; BP diastolic 60–101
[2019-10-30] MEDS: VANCOMYCIN 1.25 GM in SODIUM CHLORIDE 0.9% 250 ML IV SCH ×3 (02:33→17:43)
[2019-10-30] MEDS: MORPHINE SULFATE 4 MG/1ML SYG IV PRN ×5 (03:43→21:40)
[2019-10-30] MEDS: SODIUM CHLORIDE 0.9% 1000ML 1,000 ML IV SCH ×2 (05:00→21:00)
[2019-10-30] MEDS: INSULIN HUMULIN R 100 UNIT/ML 3ML SQ SCH ×4 (07:13→21:39)
[2019-10-30] MEDS: INSULIN GLARGINE 100 UNITS/ML 10 ML VIAL SQ SCH ×2 (07:18→21:38)
[2019-10-30] MEDS: ZOSYN 3.375GM+NS 50ML 50 ML IV SCH ×2 (08:34→15:35)
--- NOTE | 2019-10-30 12:10 | NUR ---
DC PLANING- SANTYL AND DRSG CHANGES? SUMMARY SPOKE W DR. GONZALEZ IN AM, STATES HE THINKS DR. HILLMAN WANTS IV ABX- WHAT ARE OPTOINS CALL FROM INSURANCE- ALONSO- [phone] EXT [phone] - SHE STAETS PT HAS HOME HEALTH BENENFITS BUT HH HAS TO BE WILLING TO TAKE THE CONTRACTED RATE - ADVISED HER THAT HAVE NOT YET SPOKEN TO DR. DOMINGO RE HIS RECS. ALONSO WAS UNABLE TO TELL ME THIS CM THE MEDICAITON BENEFITS. CALL TO DR. DOMINGO, MESSAGE LEFT CALL BACK FROM JOSE L WHO STATED WHAT PT REALLY NEEDS IS SANTYL- TO HEEL WITH GAUZE DAILY- WITH OR WITHOUT HOME HEALHT AND TO FOLLOW IN HIS OFFICE AND THAT PT REALLY NEEDS TO NOT BE WALKING ON THAT FOOT- AND THAT HE MAY CHANGE IDEAS FOR DC PLAN WHEN CULTURES ARE FULLY IN . RELAYED PLAN TO PATIENT- PATIENT STATED HAS [facility] APPT AT 9281 10/29 REQUESTING HAC AND/OR CM STAFF IN ROOM. WILL RELAY TO ROSA ISELA ALBA Addendum: 10/30/19 at 1215 by SOCRATES BARTON RN CM Amended: Links added. Addendum: 10/30/19 at 1439 by SOCRATES BARTON RN CM insurance number- [id number] ext [phone] alonso marvin
--- NOTE | 2019-10-30 12:23 | NUR ---
CALLED IN SANTYL 30 MG TUBE DAILY WITH GAUZE DRESSING CALLED TO [facility] [phone] ON BEHALF OF PHILL DOMINGO AWAITING CALLBACK FOR PRICES
--- NOTE | 2019-10-30 14:46 | NUR ---
REFERRAL TO [facility]- DECLINED- STATED CONTRACTED PAYMENT TOO LITTLE
--- NOTE | 2019-10-30 19:50 | NUR ---
PM Assessment Received pt with with father at the beside, NS at 25cc/hr rate change as ordered to 125cc/hr, routine assessment done, plan of care discuss, pt was made aware that Santyl for wound care is covered by insurance but HH set up remain in progress. Per pt stated that per Dr. Medrano stated he will be going home tomorrow. Pt currently denies discomfort.
[2019-10-31] MEDS: ZOSYN 3.375GM+NS 50ML 50 ML IV SCH ×2 (00:24→08:39)
[2019-10-31] MEDS: VANCOMYCIN 1.25 GM in SODIUM CHLORIDE 0.9% 250 ML IV SCH ×2 (02:27→10:09)
[2019-10-31 03:06] VITALS: BP 132/83
[2019-10-31] MEDS: MORPHINE SULFATE 4 MG/1ML SYG IV PRN ×2 (03:19→08:40)
[2019-10-31 05:32] LABS: HEMATOCRIT 36.9 % (42-54); MEAN CORPUSCULAR HGB CONC 32.8 g/dL (32.0-36.0); MEAN CORPUSCULAR VOLUME 91.3 fL (79-99); PLATELET COUNT (AUTO) 230 K/uL (130-400); RED BLOOD CELL COUNT(AUTO) 4.04 MIL/uL (4.50-6.20); WHITE BLOOD COUNT (AUTO) 7.8 K/uL (4.8-10.8)
[2019-10-31 05:46] LABS: CREATININE 0.7 mg/dL (0.5-1.5); POTASSIUM 3.9 mmol/L (3.5-5.1)
[2019-10-31] MEDS: SODIUM CHLORIDE 0.9% 1000ML 1,000 ML IV SCH (05:53)
[2019-10-31] MEDS: INSULIN HUMULIN R 100 UNIT/ML 3ML SQ SCH (05:54)
[2019-10-31 08:17] VITALS: BP 144/100
[2019-10-31] MEDS: INSULIN GLARGINE 100 UNITS/ML 10 ML VIAL SQ SCH (08:54)
[2019-10-31 11:25] VITALS: BP 162/91
--- NOTE | 2019-10-31 12:30 | NUR ---
DISCHARGE INSTRUCTIONS GIVEN TO PATIENT AND PATIENTS MOM AT BEDSIDE. WOUND CARE TEACHING DONE, DRESSING CHANGED, AND PHOTO TAKEN. PATIENTS MOM BROUGHT SANTYL FROM PHARMACY. SUPPLIES GIVEN FOR WOUND CARE AT HOME. INSTRUCTED TO FOLLOW UP WITH DR. GONZALEZ ON SATURDAY AND DR. DOMINGO IN ONE WEEK. PATIENT AT THIS TIME DENIES ANY PAIN, NO FEVER, NO SIGNS AND SYMPTOMS OF ACUTE DISTRESS NOTED. AWARE OF NON WEIGHT BEARING TO LEFT FOOT. IVS REMOVED. PATIENT TO BE TAKEN HOME BY MOTHER
--- NOTE | 2019-10-31 14:00 | NUR ---
PLEASE SEE ORDERS FORM DR. DOMINGO AND ELKE MCCOLLUM NOTES Addendum: 11/01/19 at 0810 by SOCRATES BARTON RN CM Amended: Links added.
== END 2019-10-31 12:32 | disposition home or self-care (01) | DRG 623 ==
LOC: EDH 17:35 → EDHIP 19:50 → 4CH 20:52
PROVIDERS: ADMIT Family Medicine; ATTEND Family Medicine
PROC: 0JBR0ZZ Excision of Left Foot Subcutaneous Tissue and Fascia, Open Approach (ICD-10-PCS; principal; 2019-10-28)
DX: E10.621 Type 1 diabetes mellitus with foot ulcer (principal); L97.429 Non-pressure chronic ulcer of left heel and midfoot with unspecified severity; E10.40 Type 1 diabetes mellitus with diabetic neuropathy, unspecified; I87.8 Other specified disorders of veins; B96.4 Proteus (mirabilis) (morganii) as the cause of diseases classified elsewhere; Z79.4 Long term (current) use of insulin
CPT/HCPCS: 36415; 71045; 73630; 80048; 80053; 80202; 81001; 82550; 82948; 83036; 83605; 83874; 84145; 84484; 85025; 85027; 85610; 85730; 87040; 87070; 87076; 87077; 87088; 87186; 93005; 93925; G0378; J0696; J1815; J2270; J2405; J2543; J3370; J7030

== ENCOUNTER 2020-01-19 11:29 | Emergency (ER) | payer OTHER ==
[2020-01-19 14:22] LABS: APPEARANCE,URINE Clear (CLEAR); BILIRUBIN,URINE Negative (NEGATIVE); COLOR,URINE Yellow (YELLOW); GLUCOSE, URINE (UA) >=1000 mg/dL (NEGATIVE); KETONES,URINE Negative (NEGATIVE); LEUKOCYTE ESTERASE ,URINE Negative (NEGATIVE); NITRATE,URINE Negative (NEGATIVE); OCCULT BLOOD,URINE Negative (NEGATIVE); PH,URINE 7.5 (5.0-8.0); PROTEIN,URINE Negative (NEGATIVE); UROBILINOGEN,URINE 0.2 mg/dL (0.2-1.0)
[2020-01-19 14:30] LABS: AMPHET/METH SCREEN,URINE NEGATIVE (NEGATIVE); BARBITURATE SCREEN, URINE NEGATIVE (NEGATIVE); BENZODIAZEPINES SCREEN,URINE NEGATIVE (NEGATIVE); CANNABINOID SCREEN,URINE POSITIVE (NEGATIVE); COCAINE SCREEN,URINE POSITIVE (NEGATIVE); OPIATE SCREEN,URINE NEGATIVE (NEGATIVE); PHENCYCLIDINE SCREEN,URINE NEGATIVE (NEGATIVE)
[2020-01-19 14:49] LABS: RBC,URINE None Seen /HPF (0-1); WBC,URINE 0-1 /HPF (0-1)
[2020-01-19 14:50] LABS: BACTERIA,URINE None Seen /HPF (None Seen); SQUAMOUS EPITHELIAL CELL,UR None Seen /HPF (0-2)
== END 2020-01-19 15:08 | disposition left against medical advice (07) ==
LOC: EDH 11:29
DX: R11.2 Nausea with vomiting, unspecified (principal); R10.33 Periumbilical pain; R19.05 Periumbilic swelling, mass or lump; E11.40 Type 2 diabetes mellitus with diabetic neuropathy, unspecified
CPT/HCPCS: 80305; 81001

== ENCOUNTER → 2023-02-19 | Outpatient (CLI) | payer OTHER, MEDICARE | END | disposition home or self-care (01) | LOC: RAH 12:45 | PROVIDERS: ATTEND Family Medicine | DX: M25.532 Pain in left wrist (principal) | CPT/HCPCS: 73100 ==

== ENCOUNTER → 2023-09-14 | Outpatient (CLI) | payer OTHER, MEDICARE ==
[~2023-09-14] MED LIST changes: -INSU100V39 SQ; +INSU100V45 SQ
== END | disposition home or self-care (01) ==
LOC: SHCH 08-20 14:25
PROVIDERS: ATTEND Internal Medicine Cardiovascular Disease
DX: I37.1 Nonrheumatic pulmonary valve insufficiency (principal); I25.10 Atherosclerotic heart disease of native coronary artery without angina pectoris; I31.39 Other pericardial effusion (noninflammatory); I51.7 Cardiomegaly; I51.89 Other ill-defined heart diseases
CPT/HCPCS: 93306

== ENCOUNTER → 2024-01-28 | Outpatient (CLI) | payer OTHER, MEDICARE ==
[2024-01-28 12:09] LABS: BASOPHILS # (AUTO) 0.11 K/uL (0.00-0.20); BASOPHILS % (AUTO) 1.5 % (0.0-5.0); EOSINOPHILS # (AUTO) 0.43 K/uL (0.00-0.70); HEMATOCRIT 23.7 % (42-54); IMMATURE GRANULOCYTE ABSOLUTE 0.03 K/uL (0-1); LYMPHOCYTES # (AUTO) 1.3 K/uL (1.0-4.8); LYMPHOCYTES % (AUTO) 17.7 % (21.0-51.0); MEAN CORPUSCULAR HEMOGLOBIN 32.2 pg (27.0-33.0); MEAN CORPUSCULAR HGB CONC 31.6 g/dL (32.0-36.0); MEAN CORPUSCULAR VOLUME 101.7 fL (79-99); MONOCYTES # (AUTO) 0.8 K/uL (0.1-1.0); MONOCYTES % (AUTO) 10.7 % (3.0-13.0); NEUTROPHILS # (AUTO) 4.5 K/uL (1.8-7.7); NEUTROPHILS % (AUTO) 63.7 % (40.0-77.0); PLATELET COUNT (AUTO) 244 K/uL (130-400); RED BLOOD CELL COUNT(AUTO) 2.33 MIL/uL (4.50-6.20); RED CELL DISTRIBUTION WIDTH 14.6 % (11.0-15.5); WHITE BLOOD COUNT (AUTO) 7.1 K/uL (4.8-10.8)
[2024-01-28 12:17] LABS: CREATININE 7.1 mg/dL (0.5-1.3); POTASSIUM 4.9 mmol/L (3.5-5.1)
[2024-01-28 12:19] LABS: INR 0.96 (0.85-1.15); PROTHROMBIN TIME 11.4 SEC (9.6-11.6)
[2024-01-28 12:20] LABS: PARTIAL THROMBOPLASTIN TIME 30.2 SEC (26.3-35.5)
[2024-01-28 12:27] LABS: B-TYPE NATRIURETIC PEPTIDE 923 pg/mL (0-100)
== END | disposition home or self-care (01) ==
LOC: DAH 10:00 → EDSTATUS 01-30 11:00
PROVIDERS: ATTEND Internal Medicine Cardiovascular Disease
DX: Z01.818 Encounter for other preprocedural examination (principal); I25.10 Atherosclerotic heart disease of native coronary artery without angina pectoris; Z79.01 Long term (current) use of anticoagulants
CPT/HCPCS: 36415; 80048; 83880; 85025; 85610; 85730; 93005

== ENCOUNTER → 2024-04-09 | Outpatient (CLI) | payer OTHER, MEDICARE ==
[~2024-04-09] VITALS: Ht 177.8 cm; Wt 66.1 kg
[~2024-04-09] MED LIST changes: +AMLO-258 PO; +CARV12.511 PO; -GABA-529 PO; +HYDR50TA37 PO; -INSU100V12 SQ; -INSU100V45 SQ; +LOSA100T59 PO; +SEVE800T7 PO; +novolog SQ
[2024-04-09 09:47] LABS: EOSINOPHILS # (AUTO) 0.67 K/uL (0.00-0.70); EOSINOPHILS % (AUTO) 6.8 % (0.0-8.0); HEMATOCRIT 25.4 % (42-54); IMMATURE GRANULOCYTE ABSOLUTE 0.04 K/uL (0-1); LYMPHOCYTES # (AUTO) 1.1 K/uL (1.0-4.8); LYMPHOCYTES % (AUTO) 11.2 % (21.0-51.0); MEAN CORPUSCULAR HEMOGLOBIN 31.7 pg (27.0-33.0); MEAN CORPUSCULAR HGB CONC 31.1 g/dL (32.0-36.0); MONOCYTES # (AUTO) 0.8 K/uL (0.1-1.0); MONOCYTES % (AUTO) 8.2 % (3.0-13.0); NEUTROPHILS # (AUTO) 7.1 K/uL (1.8-7.7); NEUTROPHILS % (AUTO) 72.4 % (40.0-77.0); PLATELET COUNT (AUTO) 318 K/uL (130-400); RED BLOOD CELL COUNT(AUTO) 2.49 MIL/uL (4.50-6.20); RED CELL DISTRIBUTION WIDTH 21.1 % (11.0-15.5); WHITE BLOOD COUNT (AUTO) 9.9 K/uL (4.8-10.8)
[2024-04-09 10:00] LABS: POTASSIUM 4.2 mmol/L (3.5-5.1)
[2024-04-09 10:03] LABS: PROTHROMBIN TIME 10.8 SEC (9.6-11.6)
[2024-04-09 10:04] LABS: PARTIAL THROMBOPLASTIN TIME 27.6 SEC (26.3-35.5)
[2024-04-09 10:06] VITALS: BP 145/80; PULSE 86; RESP 16; TEMP 97.4
[2024-04-09 10:38] LABS: B-TYPE NATRIURETIC PEPTIDE 919 pg/mL (0-100)
== END | disposition home or self-care (01) ==
LOC: DAH 10:00 → EDSTATUS 04-14 09:00
PROVIDERS: ATTEND Internal Medicine Cardiovascular Disease
DX: I25.10 Atherosclerotic heart disease of native coronary artery without angina pectoris (principal); E11.22 Type 2 diabetes mellitus with diabetic chronic kidney disease; N18.6 End stage renal disease
CPT/HCPCS: 36415; 71045; 80048; 83880; 85025; 85610; 85730; 93005

== ENCOUNTER 2024-07-02 05:40 | Day surgery (SDC) | payer OTHER, MEDICARE ==
[2024-06-30 11:14] VITALS: BP 182/97; PULSE 75; RESP 18; TEMP 97.7
[2024-06-30 11:27] LABS: BASOPHILS % (AUTO) 1.6 % (0.0-5.0); EOSINOPHILS # (AUTO) 0.51 K/uL (0.00-0.70); EOSINOPHILS % (AUTO) 8.3 % (0.0-8.0); HEMATOCRIT 34.2 % (42-54); IMMATURE GRANULOCYTE ABSOLUTE 0.01 K/uL (0-1); LYMPHOCYTES % (AUTO) 16.5 % (21.0-51.0); MEAN CORPUSCULAR HEMOGLOBIN 33.9 pg (27.0-33.0); MEAN CORPUSCULAR HGB CONC 31.3 g/dL (32.0-36.0); MEAN CORPUSCULAR VOLUME 108.2 fL (79-99); MONOCYTES # (AUTO) 0.6 K/uL (0.1-1.0); MONOCYTES % (AUTO) 9.4 % (3.0-13.0); PLATELET COUNT (AUTO) 246 K/uL (130-400); RED BLOOD CELL COUNT(AUTO) 3.16 MIL/uL (4.50-6.20); RED CELL DISTRIBUTION WIDTH 15.8 % (11.0-15.5); WHITE BLOOD COUNT (AUTO) 6.2 K/uL (4.8-10.8)
--- NOTE | 2024-06-30 11:29 | EKG ---
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
[2024-06-30 11:35] LABS: CREATININE 7.5 mg/dL (0.5-1.3); POTASSIUM 5.6 mmol/L (3.5-5.1)
[2024-06-30 11:55] LABS: INR 1.04 (0.85-1.15); PROTHROMBIN TIME 11.2 SEC (9.6-11.6)
[2024-06-30 11:56] LABS: PARTIAL THROMBOPLASTIN TIME 28.6 SEC (26.3-35.5)
[2024-06-30 11:59] LABS: B-TYPE NATRIURETIC PEPTIDE 834 pg/mL (0-100)
--- NOTE | 2024-06-30 17:08 | HMCIMG ---
CHEST 1VW HISTORY: Preop COMPARISON: 04/09/2024 FINDINGS: A frontal projection of the chest was obtained. No acute pulmonary infiltrates is seen. The heart is normal in size. Prominent interstitial markings are seen. No evidence of aortic calcification is seen. IMPRESSION: 1. No acute pulmonary infiltrate is seen.
[~2024-07-02] VITALS: Ht 177.8 cm; Wt 70.0 kg
[2024-07-02] VITALS (14 sets, daily range): BP systolic 107–141; BP diastolic 42–70; PULSE 61–80; RESP 12–18; TEMP 97.4–97.8
[~2024-07-02 05:40] MED LIST changes: +SEVE800T27 PO
[2024-07-02] MEDS ORDERED: LIDOCAINE HCL 400MG/20ML VIAL ONE (07:18)
[2024-07-02] MEDS ORDERED: IOHEXOL 350 MG/ML 100ML INFUS..BTL IV ONE (07:19)
[2024-07-02] MEDS ORDERED: HEParin-NS 1,000 UNIT/500 ML 1,000 ML IV ONE (07:19)
[2024-07-02] MEDS ORDERED: SODIUM BICARB 50MEQ 50ML VIAL 50 ML ONE (07:19)
[2024-07-02] MEDS ORDERED: NITROGLYCERIN 50MG VIAL ONE (07:19)
[2024-07-02] MEDS ORDERED: HEParin 10,000 UNIT/10ML (1,000 UNIT/ML) VIAL ONE (07:19)
[2024-07-02] MEDS ORDERED: MEPERIDINE-PF 25 MG/ML SYG ONE ×2 (07:38→07:46)
[2024-07-02] MEDS ORDERED: MIDAZOLAM HCL 1 MG/ML 2ML VIAL ONE ×2 (07:38→07:46)
[2024-07-02] MEDS ORDERED: niCARDIpine 25MG INJ IV ONE (07:43)
[2024-07-02] MEDS ORDERED: DEXTROSE 50%-WATER 50 ML DISP.SYRIN IV PRN (08:30)
[2024-07-02] MEDS ORDERED: GLUCAGON 1MG KIT 1 MG ML IM PRN (08:30)
--- NOTE | 2024-07-02 08:35 | CCATH ---
PROCEDURES: * Left heart catheterization. * Selective right and left coronary angiogram. * Conscious sedation. INDICATIONS: * Diabetes mellitus. * Hypertension. * Chronic kidney disease, on chronic hemodialysis. * Anticipated kidney and pancreatic transplant. * Requirement for cardiac catheterization prior to transplant. COMPLICATIONS: None. TOTAL CONTRAST: Approximately 80 mL. DESCRIPTION OF PROCEDURE: The patient was taken to the cardiac catheterization lab after appropriate operative consents were signed. He was prepped and draped in the usual fashion. After conscious sedation was administered, the right radial artery was accessed after local infiltration with Xylocaine without epinephrine. A 6-Paraguayan slender radial sheath was advanced in retrograde fashion by the modified Seldinger technique. Radial cocktail was administered. At this point, a TIG-4 catheter was advanced over an indwelling wire. It was placed in the left ventricular cavity. Left ventricular end-diastolic pressure measurement was obtained. Pullback revealed no evidence of aortic stenosis. Ventriculography was deferred. The patient has an EF of 50-55% by 2D echocardiography. The patient also has echocardiographic features suggestive of amyloidosis. The catheter was then engaged in the ostium of the right coronary artery. This was imaged in multiplane. This was a large vessel that gave rise to an acute marginal, a large PDA and PLVB system. The right coronary artery was free of disease. The catheter was withdrawn and engaged in the left main coronary artery. This was a large vessel that was free of disease. It trifurcated into an LAD, and intermediate and a circumflex. The LAD was a large vessel that gave rise to several diagonals and septal perforators. The LAD had a recurrent apical branch. There were minimal luminal irregularities in the diagonal, but no other significant stenotic lesions. The intermediate was a moderately sized vessel that was branching in its terminal portion. It had no significant stenotic lesions. Circumflex was a moderately sized vessel that gave rise to small OM1 and an ongoing circ with a small OM2. At this point, the procedure was completed, the catheter was withdrawn over an indwelling wire. Radial band was applied with good hemostasis. FINAL IMPRESSION: * Essentially normal epicardial coronary arteries. * No aortic stenosis. 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 * No aortic stenosis. PLAN: Continue medical management. TID: [id number] RECEIPT: [id number]
[2024-07-02] MEDS: 0.9%NACL 1000ML 1,000 ML IV ONE (10:44)
[2024-07-02] MEDS ORDERED: INSULIN humuLIN R 100 UNIT/ML 3ML SQ SCH (11:30)
== END 2024-07-02 12:00 | disposition home or self-care (01) ==
LOC: DAH 05:40
PROVIDERS: ATTEND Internal Medicine Cardiovascular Disease
DX: I25.10 Atherosclerotic heart disease of native coronary artery without angina pectoris (principal); I12.0 Hypertensive chronic kidney disease with stage 5 chronic kidney disease or end stage renal disease; E11.22 Type 2 diabetes mellitus with diabetic chronic kidney disease; N18.6 End stage renal disease; Z94.83 Pancreas transplant status; Z99.2 Dependence on renal dialysis; E11.51 Type 2 diabetes mellitus with diabetic peripheral angiopathy without gangrene; M86.9 Osteomyelitis, unspecified; E78.5 Hyperlipidemia, unspecified; F32.A Depression, unspecified; Z89.421 Acquired absence of other right toe(s); E11.40 Type 2 diabetes mellitus with diabetic neuropathy, unspecified; E11.21 Type 2 diabetes mellitus with diabetic nephropathy; Z94.0 Kidney transplant status; Z98.42 Cataract extraction status, left eye; Z88.8 Allergy status to other drugs, medicaments and biological substances; Z88.5 Allergy status to narcotic agent; Z88.6 Allergy status to analgesic agent; Z79.4 Long term (current) use of insulin; Z79.899 Other long term (current) drug therapy
CPT/HCPCS: 80048; 83880; 85025; 85610; 85730; 36415 ×2; 71045; 93005; 93458; 84132; 82948; C1769; A4649; C1894; Q9965; J3490 ×4; J7030; J1644 ×2; J2250 ×2; J2175 ×2; Q9967; A4215; A4222; A4221; A4663; A4216; A4606; A4223 ×3; 99156; 99157